=== PATIENT | female | born 1950 | race Caucasian/White ===

== ENCOUNTER → 2019-08-21 | Outpatient (CLI) | payer MEDICARE ==
--- NOTE | 2019-08-21 10:37 | RAD ---
CT Abdomen and Pelvis without contrast History: Left flank pain Technique: Noncontrast CT imaging was performed of the abdomen and pelvis. Multiplanar images are reviewed. Exposure: One or more of the following individualized dose reduction techniques were utilized for this examination: 1. Automated exposure control 2. Adjustment of the mA and/or kV according to patient size 3. Use of iterative reconstruction technique. Comparison: None Findings: There is no hydronephrosis or urolithiasis. There is hypodense lesion of the inferomedial right kidney about 2.5 cm, density measurements of a cyst at 7 Hounsfield units. There are phleboliths in the pelvis bilaterally. Accurate evaluation of abdominal visceral organs is limited without intravenous contrast. There is no obvious focal abnormality of the spleen, liver, or pancreas. There is hepatic steatosis. Gallbladder is present without obvious intraluminal abnormality by CT. There is no adrenal nodularity. Normal caliber appendix is visualized without adjacent inflammatory-type change. There is no significant free air, free fluid, bowel dilatation. There are somewhat enlarged nonspecific jazmyn hepatis nodes, largest about 1.6 cm short axis dimension. Portal caval node measures about 1.6 cm short axis dimension. There are some other smaller scattered retroperitoneal nodes. There are multiple small mesenteric nodes, also some mild hazy density of the more central mesenteric fat. Poorly evaluated due to lack of oral contrast, there may be degree of wall thickening of the small bowel greatest centrally in the superior pelvis and left abdomen. There is bilateral L5 spondylolysis, no significant L5-S1 spondylolisthesis. There is multilevel lumbar facet degenerative change. Impression: 1. There is no urolithiasis or hydronephrosis. There is inferior right renal cyst. 2. There is nonspecific hazy density of the more central mesenteric fat and multiple tiny mesenteric nodes, also some enlarged nodes of the jazmyn hepatis and other scattered small retroperitoneal nodes. Findings could be reactive although neoplastic etiology cannot be excluded at this point in time. Follow-up could be beneficial to assess stability such as in 3-6 months in combination with appropriate laboratory assessment. There could be a greater degree of small bowel wall thickening in the central and left abdomen pelvis as may be seen with nonspecific enteritis. 3. There is hepatic steatosis. 4. There is L5 spondylolysis without spondylolisthesis at L5-S1. Electronically signed by: Jb Worrell MD (08/21/2019 10:34 AM) [id number]
== END | disposition home or self-care (01) ==
LOC: CT 09:22
PROVIDERS: ATTEND Family Medicine
DX: K76.0 Fatty (change of) liver, not elsewhere classified (principal); N28.1 Cyst of kidney, acquired; I87.8 Other specified disorders of veins; M47.816 Spondylosis without myelopathy or radiculopathy, lumbar region
CPT/HCPCS: 74176

== ENCOUNTER → 2019-08-27 | Outpatient (CLI) | payer MEDICARE ==
[~2019-08-27] MED LIST: IOHEXOL 240 MG/ML 50ML VIAL. ONE; IOHEXOL 300 MG/ML 75 ML VIAL. IV ONE
--- NOTE | 2019-08-27 11:21 | RAD ---
Exam: CT abdomen/pelvis with intravenous contrast Indication: Left-sided abdominal pain Comparison: CT abdomen and pelvis 08/21/2019 Technique: Helical CT imaging performed of the abdomen and pelvis after administration of 75 mL Omnipaque 300 contrast.. Sagittal and coronal reformats were obtained. One or more of the following individualized dose reduction techniques were utilized for this examination: 1. Automated exposure control 2. Adjustment of the mA and/or kV according to patient size 3. Use of iterative reconstruction technique. Findings: Lower chest: Lung bases are clear and heart is normal in size. Liver: The liver is normal in size and diffusely low in attenuation. No focal liver lesion. Hepatic vasculature is patent. Gallbladder/Biliary Tree: Gallbladder and bile ducts are normal. Pancreas: Mild fatty atrophy of the pancreas. Spleen: Normal. Adrenal Glands: Normal. Kidneys/Ureters/Bladder: Kidneys are normal in size and enhance symmetrically. No hydronephrosis. A 2.4 cm simple cyst in the inferior right renal pole is unchanged. Ureters and bladder are normal. Reproductive Organs: The uterus is surgically absent. No adnexal mass. Stomach, small bowel, and colon: The stomach, small bowel, and colon are normal. Appendix is normal. Vasculature: Abdominal aorta is normal in caliber. There is mild calcified aortoiliac atherosclerosis. Lymph Nodes: Mildly enlarged portacaval and jazmyn hepatis lymph nodes and smaller gastrohepatic ligament and periaortic lymph nodes are unchanged. For example, a jazmyn hepatis lymph node measuring 1.6 cm short axis is unchanged (image 23, series 2). No new lymphadenopathy. Haziness at the root of the mesentery is unchanged. Peritoneum and retroperitoneum: No free fluid or free air. Bones: No acute fracture or suspicious osseous lesion. There are bilateral L5 pars defects without spondylolisthesis. Multilevel facet arthrosis. Impression: 1. No acute intraabdominal/pelvic abnormality. 2. Unchanged mildly enlarged mesenteric and retroperitoneal lymph nodes, and mild haziness at the root of the mesentery, nonspecific. 3. Hepatic steatosis. Electronically signed by: Mckenna Flowers MD (08/27/2019 11:18 AM) [id number]
== END | disposition home or self-care (01) ==
LOC: CT 08:56
PROVIDERS: ATTEND Family Medicine
DX: K76.0 Fatty (change of) liver, not elsewhere classified (principal); K86.89 Other specified diseases of pancreas; N28.1 Cyst of kidney, acquired; R59.1 Generalized enlarged lymph nodes; I70.0 Atherosclerosis of aorta
CPT/HCPCS: 74177; Q9967